=== PATIENT | female | born 1980 | race Hispanic/Latino ===

== ENCOUNTER → 2022-09-29 | Outpatient (CLI) | payer OTHER | LOC: RAD 11:58 | PROVIDERS: ATTEND Family Medicine | DX: M54.50 Low back pain, unspecified (principal); M54.2 Cervicalgia | CPT/HCPCS: 71046; 72050; 72110 ==

== ENCOUNTER → 2024-01-03 | Outpatient (REF) | payer OTHER | LOC: MAMMO 08:56 | PROVIDERS: ATTEND Internal Medicine | DX: Z12.31 Encounter for screening mammogram for malignant neoplasm of breast (principal); M85.88 Other specified disorders of bone density and structure, other site; M47.812 Spondylosis without myelopathy or radiculopathy, cervical region; M47.816 Spondylosis without myelopathy or radiculopathy, lumbar region; F32.0 Major depressive disorder, single episode, mild | CPT/HCPCS: 72050; 72110; 77067; 77080 ==